=== PATIENT | female | born 1955 | race Caucasian/White ===

== ENCOUNTER 2022-02-03 10:18 | Emergency (ER) | payer OTHER ==
[~2022-02-03] VITALS: Ht 160 cm; Wt 124.7 kg
[2022-02-03 15:18] VITALS: BP 135/75
[2022-02-03] MEDS ORDERED: CEPH-509 PO (15:29)
[2022-02-03] MEDS ORDERED: cefTRIAXone SOD 1,000 MG VL IM ONE (15:30)
[2022-02-03] MEDS ORDERED: TETANUS-DIPTH-ACEL PERTUSSIS 0.5ML SYR Tdap IM ONE (15:45)
== END 2022-02-03 16:06 | disposition home or self-care (01) ==
LOC: ER 10:18
DX: L03.032 Cellulitis of left toe (principal)
CPT/HCPCS: 73660; 90471; 90715; 96372; 99284; J0696